=== PATIENT | female | born 1940 | race Caucasian/White ===

== ENCOUNTER 2017-01-11 00:28 | Emergency (ER) | payer MEDICARE ==
[2017-01-11] MEDS ORDERED: ONDANSETRON 4 MG/2 ML VIAL IVP STA (00:33)
[2017-01-11 00:42] LABS: Glucose,Whole Blood 168 mg/dL (75-99)
[2017-01-11 00:58] VITALS: RESP 18; TEMP 98.2
--- NOTE | 2017-01-11 00:58 | ED ---
Nausea/Vomiting/Diarrhea HPI - General Stated complaint: Nausea, vomiting Time Seen by Provider: 01/11/17 00:32 Source: family () Limitations: physical limitation (Patient not cooperative with history) - History of Present Illness Initial comments: This patient is a 76-year-old woman who presents to be evaluated for vomiting. History is mainly from the patient's , as the patient does not appear to be cooperative with the history. Per the patient's , she complained of having a "sinus headache" last night. This recurred today. The patient reportedly did not want to eat much for lunch today, only having a milkshake, around 1 PM, and then after 2 PM she began having a number of episodes of vomiting. The patient again is not cooperative with the history. MD complaint: vomiting -: hour(s) Description of Vomiting: food contents - Related Data Allergies Allergy/AdvReac Type Severity Reaction Status Date / Time No Known Allergies Allergy Verified 01/11/17 00:56 Review of Systems ROS Statement: Those systems with pertinent positive or pertinent negative responses have been documented in the HPI. ROS Other: All systems not noted in ROS Statement are negative. Limitations: ROS unobtainable due to patients medical condition Gastrointestinal: Reports: vomiting Neurological: Reports: headache General Exam General appearance: alert Head exam: Present: atraumatic, normocephalic Eye exam: Present: normal appearance, PERRL, EOMI. Absent: scleral icterus, conjunctival injection ENT exam: Present: mucous membranes dry Neck exam: Present: normal inspection, full ROM. Absent: tenderness, meningismus Respiratory exam: Present: normal lung sounds bilaterally. Absent: respiratory distress, wheezes, rales, rhonchi, stridor Cardiovascular Exam: Present: regular rate, normal rhythm, systolic murmur ( Grade 3/6 systolic ejection murmur). Absent: diastolic murmur, rubs, gallop GI/Abdominal exam: Present: soft. Absent: tenderness, guarding, rebound, mass Extremities exam: Present: normal inspection, normal capillary refill. Absent: pedal edema, calf tenderness Neurological exam: Present: alert, CN II-XII intact, other (Patient not able to cooperate fully with the neurologic exam. She is able to follow simple one step commands. The patient was only able to answer simple yes or no questions. She otherwise was not speaking, though her speech was not dysarthric. Not able to assess for orientation.). Absent: motor sensory deficit Skin exam: Present: warm, dry, intact, normal color Course Vital Signs 01/11/17 01/11/17 01/11/17 00:30 01:07 01:34 Temperature 98.2 F Pulse Rate 60 60 69 Respiratory 18 18 Rate Blood Pressure 148/68 145/67 O2 Sat by Pulse 85 L 98 99 Oximetry - Reevaluation(s) Reevaluation #1: 01/11/17 01:42 The patient has gone for CAT scan which I reviewed and which appears to show a right frontal lobe intraparenchymal hemorrhage, as well as some right-sided subdural hematoma. There may be a small left posterior hemorrhage. There is mass effect present. Shortly after reviewing the study the radiologist phoned and also reported the hemorrhage. I discussed the case with the patient's including the fact that the patient requires neurosurgical evaluation and treatment, and he requests to go to the nearest facility. I phone and discussed the case with the physicians at [facility]. Medical Decision Making - Medical Decision Making Patient be transferred to [facility], accepting physician is Dr. Love. In addition, I spoke with the patient's daughter who states that she has been designated to make healthcare decisions and she agrees with the transfer to the nearest facility, [facility]. - Lab Data Result diagrams: 01/11/17 00:50 01/11/17 00:50 Lab Results 01/11/17 01/11/17 01/11/17 Range/Units 00:37 00:50 00:50 WBC 15.5 H (3.8-10.6) k/uL RBC 4.63 (3.80-5.40) m/uL Hgb 13.0 (11.4-16.0) gm/dL Hct 42.9 (34.0-46.0) % MCV 92.7 (80.0-100.0) fL MCH 28.1 (25.0-35.0) pg MCHC 30.3 L (31.0-37.0) g/dL RDW 14.0 (11.5-15.5) % Plt Count 173 (150-450) k/uL Neutrophils % 89 % Lymphocytes % 6 % Monocytes % 4 % Eosinophils % 0 % Basophils % 0 % Neutrophils # 13.9 H (1.3-7.7) k/uL Lymphocytes # 0.9 L (1.0-4.8) k/uL Monocytes # 0.7 (0-1.0) k/uL Eosinophils # 0.0 (0-0.7) k/uL Basophils # 0.0 (0-0.2) k/uL Sodium 135 L (137-145) mmol/L Potassium 3.8 (3.5-5.1) mmol/L Chloride 99 (98-107) mmol/L Carbon Dioxide 22 (22-30) mmol/L Anion Gap 14 mmol/L BUN 15 (7-17) mg/dL Creatinine 0.50 L (0.52-1.04) mg/dL Est GFR (MDRD) Af Amer >60 (>60 ml/min/1.73 sqM) Est GFR (MDRD) Non-Af >60 (>60 ml/min/1.73 sqM) Glucose 178 H (74-99) mg/dL POC Glucose (mg/dL) 168 H (75-99) mg/dL POC Glu Baker Operator Automatic ID Juan Nogueira Calcium 9.2 (8.4-10.2) mg/dL Total Bilirubin 1.0 (0.2-1.3) mg/dL AST 21 (14-36) U/L ALT 33 (9-52) U/L Alkaline Phosphatase 147 H (38-126) U/L Troponin I (0.000-0.034) ng/mL Total Protein 6.7 (6.3-8.2) g/dL Albumin 4.3 (3.5-5.0) g/dL Amylase 33 (30-110) U/L Lipase 64 (23-300) U/L Urine Color Urine Appearance (Clear) Urine pH (5.0-8.0) Ur Specific Corea (1.001-1.035) Urine Protein (Negative) Urine Glucose (UA) (Negative) Urine Ketones (Negative) Urine Blood (Negative) Urine Nitrite (Negative) Urine Bilirubin (Negative) Urine Urobilinogen (<2.0) mg/dL Ur Leukocyte Esterase (Negative) Urine RBC (0-5) /hpf Urine WBC (0-5) /hpf Ur Squamous Epith Cells (0-4) /hpf Hyaline Casts (0-2) /lpf Urine Mucus (None) /hpf 01/11/17 01/11/17 Range/Units 00:50 00:50 WBC (3.8-10.6) k/uL RBC (3.80-5.40) m/uL Hgb (11.4-16.0) gm/dL Hct (34.0-46.0) % MCV (80.0-100.0) fL MCH (25.0-35.0) pg MCHC (31.0-37.0) g/dL RDW (11.5-15.5) % Plt Count (150-450) k/uL Neutrophils % % Lymphocytes % % Monocytes % % Eosinophils % % Basophils % % Neutrophils # (1.3-7.7) k/uL Lymphocytes # (1.0-4.8) k/uL Monocytes # (0-1.0) k/uL Eosinophils # (0-0.7) k/uL Basophils # (0-0.2) k/uL Sodium (137-145) mmol/L Potassium (3.5-5.1) mmol/L Chloride (98-107) mmol/L Carbon Dioxide (22-30) mmol/L Anion Gap mmol/L BUN (7-17) mg/dL Creatinine (0.52-1.04) mg/dL Est GFR (MDRD) Af Amer (>60 ml/min/1.73 sqM) Est GFR (MDRD) Non-Af (>60 ml/min/1.73 sqM) Glucose (74-99) mg/dL POC Glucose (mg/dL) (75-99) mg/dL POC Glu Baker Operator Automatic ID Calcium (8.4-10.2) mg/dL Total Bilirubin (0.2-1.3) mg/dL AST (14-36) U/L ALT (9-52) U/L Alkaline Phosphatase (38-126) U/L Troponin I <0.012 (0.000-0.034) ng/mL Total Protein (6.3-8.2) g/dL Albumin (3.5-5.0) g/dL Amylase (30-110) U/L Lipase (23-300) U/L Urine Color Yellow Urine Appearance Clear (Clear) Urine pH 6.0 (5.0-8.0) Ur Specific Corea 1.020 (1.001-1.035) Urine Protein 1+ H (Negative) Urine Glucose (UA) Negative (Negative) Urine Ketones 3+ H (Negative) Urine Blood Negative (Negative) Urine Nitrite Negative (Negative) Urine Bilirubin Negative (Negative) Urine Urobilinogen <2.0 (<2.0) mg/dL Ur Leukocyte Esterase Negative (Negative) Urine RBC 4 (0-5) /hpf Urine WBC 2 (0-5) /hpf Ur Squamous Epith Cells <1 (0-4) /hpf Hyaline Casts 1 (0-2) /lpf Urine Mucus Moderate H (None) /hpf - EKG Data -: EKG Interpreted by Md EKG shows normal: sinus rhythm (With sinus arrhythmia rate approximately 60 bpm) , axis (Normal), intervals (Normal) Rate: normal When compared to previous EKG there are: other (No comparison EKG available) Interpretation: LVH (With repolarization abnormality) Critical Care Time Critical Care Time: Yes (35 minutes) Disposition Clinical Impression: Intracerebral hemorrhage Disposition: OTHER INSTITUTION NOT DEFINED Condition: Critical Referrals: Nonstaff,Physician [Primary Care Provider] - 1-2 days - Out of Hospital Transfer - Req. Specs Out of Hospital Transfer - Requested Specifics: Other Emergency Center
[2017-01-11 01:12] LABS: Basophils % (A) 0 %; CHCM 34.7; Eosinophils % (A) 0 %; HCT 42.9 % (34.0-46.0); HDW 2.42; Luc # (Auto) 0.06; Luc % (Auto) 0; Lymphocytes # (A) 0.9 k/uL (1.0-4.8); Lymphocytes % (A) 6 %; MCH 28.1 pg (25.0-35.0); MCHC 30.3 g/dL (31.0-37.0); MCV 92.7 fL (80.0-100.0); Mean Platelet Volume 10.1; Monocytes # (A) 0.7 k/uL (0-1.0); Monocytes % (A) 4 %; Neutrophils # (A) 13.9 k/uL (1.3-7.7); Neutrophils % (A) 89 %; RBC 4.63 m/uL (3.80-5.40); WBC 15.5 k/uL (3.8-10.6); WBC (Perox) 16.56
[2017-01-11 01:16] LABS: Appearance,Urine Clear (Clear); Bilirubin,Urine Negative (Negative); Glucose,Urine (UA) Negative (Negative); Ketones,Urine 3+ (Negative); Leukocyte Esterase,Urine Negative (Negative); Mucus,Urine Moderate /hpf; Nitrite,Urine Negative (Negative); Particle Count 6638; Protein,Urine 1+ (Negative); RBC,Urine 4 /hpf (0-5); Squamous Epithelial Cell,Urine <1 /hpf (0-4); UA Billing (MACRO vs. MICRO) MICRO; Urobilinogen,Urine <2.0 mg/dL (<2.0); WBC,Urine 2 /hpf (0-5)
[2017-01-11 01:21] LABS: ALT 33 U/L (9-52); AST 21 U/L (14-36); Alkaline Phosphatase 147 U/L (38-126); Amylase 33 U/L (30-110); Anion Gap 14 mmol/L; Blood Urea Nitrogen 15 mg/dL (7-17); Calcium 9.2 mg/dL (8.4-10.2); Carbon Dioxide 22 mmol/L (22-30); Chloride 99 mmol/L (98-107); Glucose 178 mg/dL (74-99); Non-African American GFR(MDRD) >60 (>60 ml/min/1.73 sqM); Potassium 3.8 mmol/L (3.5-5.1); Sodium 135 mmol/L (137-145); Total Protein 6.7 g/dL (6.3-8.2)
[2017-01-11 01:35] VITALS: BP 145/67; PULSE 69
--- NOTE | 2017-01-11 01:41 | CT ---
EXAMINATION TYPE: CT brain wo con DATE OF EXAM: 01/11/2017 COMPARISON: NONE HISTORY: headache CT DLP: 1108.40 mGycm Automated exposure control for dose reduction was used. FINDINGS: There is a rounded 4.5 cm area of high attenuation in the right frontal lobe consistent with acute in traparenchymal hemorrhage. There is also widening of the subdural space over the right cerebral hemis phere. This measures up to 10 mm in thickness consistent with acute subdural hematoma. There is effac ement of the right lateral ventricle. There is shift of the midline to the left side. There is a 1.5 cm area of acute parenchymal hemorrhage in the left posterior parietal lobe convexity. IMPRESSION: ACUTE RIGHT FRONTAL AND LEFT POSTERIOR PARIETAL PARENCHYMAL HEMORRHAGE. MODERATE-SIZED ACUTE RIGHT SI DE SUBDURAL HEMORRHAGE. THE FINDINGS ARE CONSISTENT WITH ACUTE TRAUMATIC INJURY WITH COUP AND CONTREC OUP HEMORRHAGE. NO SKULL FRACTURE SEEN. THIS EXAM WAS DISCUSSED WITH ER PHYSICIAN AT 1:35 AM
== END 2017-01-11 02:26 | disposition short-term general hospital (02) ==
LOC: EC 00:28
DX: I61.9 Nontraumatic intracerebral hemorrhage, unspecified (principal); I49.8 Other specified cardiac arrhythmias; I51.7 Cardiomegaly; R01.1 Cardiac murmur, unspecified
CPT/HCPCS: 99291 ×2; 96374 ×2; 36415; 93005; 80053; 82150; 83690; 84484; 85025; 81001; 70450; J2405